=== PATIENT | female | born 1980 | race Caucasian/White ===

== ENCOUNTER → 2021-02-28 | Outpatient (CLI) | payer OTHER ==
--- NOTE | 2021-03-13 14:31 | PFR/MVV ---
[facility] [place] [address] PULMONARY FUNCTION MVV/REPORT Name: [facility] ST[facility]ENS [id number]: [facility]/28/21 Attend Phys: Hunter Stallworth DO Discharge: Date of : 80 Report #: [id number] THIS REPORT FOR: //name// >> SPIROMETRY: (BTPS) Height: 66 in cm Weight: 280 lbs kg Exam Date: 02/28/21 PRE-RX POST-RX PRED BEST %PRED BEST %PRED %CHG FVC LITERS . 3.78 . 3.97 . 105 . 4.19 . 111 . 6 FEV1 LITERS . 2.94 . 3.02 . 102 . 3.32 . 113 . 10 FEV1/FVC % . 77 . 76 . 99 . 79 . 103 . 4 DOD40-58% L/Sec . 3.31 . 2.72 . 82 . 3.22 . 97 . 18 PEF L/SEC . 6.48 . 5.32 . 82 . 5.38 . 83 . -1 FEF50/FIF50 UNITLESS . 4.00 . 3.35 . 84 . 4.48 . 112 . 34 MVV L/Min . 107 . . f 1/Min . . . >> LUNG VOLUMES: (BTPS) PRE-RX POST-RX PRED AVG %PRED AVG %PRED %CHG VC Liters . 3.78 . 3.97 . 105 . . . TLC Liters . 5.46 . . . . . RV Liters . 1.83 . . . . . RV/TLC % . 32 . . . . . FRC PL Liters . 2.01 . 17.76 . 882 . . . FRC N2 Liters . 2.01 . . . . . ERV Liters . 1.25 . . . . . IC Liters . 2.50 . . . . . >> DIFFUSION: DLCO ml/Min/mmHg . 31.6 . 27.9 . 88 . . . DL Raza ml/Min/mmHg . 31.6 . 27.9 . 88 . . . DLCO/VA ml/Min/mmHg . 4.25 . 1.25 . 29 . . . VA Liters . . 22.33 . . . . COMMENTS: COMMENTS: >> RESISTANCE: [facility] [address] [place] [address] PULMONARY FUNCTION MVV/REPORT Name: STEVENSKINA Room #: REG MARY Andersen#: [id number] Admission: 02/28/21 Attend Phys: Hunter Stallworth DO Discharge: Date of : 80 Report #: [id number] PRE-RX PRED AVG %PRED Raw Total cmH20/L/Sec . . 0.77 . Raw Insp cmH20/L/Sec . . 1.41 . Raw Exp cmH20/L/Sec . . 1.43 . Raw cmH20/L/Sec . 1.98 . 0.28 . 14 Gaw L/Sec/cmH20 . 0.483 . 3.521 . 729 sRaw cmH20 Sec . 3.98 . 5.72 . 144 sGaw l/cmH20 Sec . 0.251 . 0.175 . 70 Vtq Liters . . 20.15 . # = OUTSIDE 95% CONFIDENCE INTERVAL CALIBRATION: PRED: 3.00 ACTUAL: EXP 3.01 INSP 3.02 [facility]-10-06 [facility]- [id number] >> INTERPRETATION/IMPRESSION: DATE OF SERVICE: 02/28/2021 PULMONARY FUNCTION STUDIES SPIROMETRY: FEV1 is 3.02 liters (102% predicted), FVC is 3.97 liters (105% predicted), FEV1/FVC ratio is 76%. Post-bronchodilator therapy with an intermediate response. FEV1 increased to 3.32 liters (113% predicted, 10% change). Vital capacity is 3.97 liters (105% predicted). Diffusing capacity is 88%. IMPRESSION: Pulmonary function studies are consistent with normal pulmonary function. There is no obstructive airflow defect. Lung volumes appear normal. Diffusing capacity is normal. There is an intermediate response to bronchodilator therapy. <ELECTRONICALLY SIGNED> By: Mauro Cramer MD 03/13/21 1431 Mauro Cramer MD /nt
== END ==
LOC: PUL 10:51
PROVIDERS: ATTEND Chiropractor
DX: J01.90 Acute sinusitis, unspecified (principal); J45.909 Unspecified asthma, uncomplicated; J30.9 Allergic rhinitis, unspecified; Z20.822 Contact with and (suspected) exposure to COVID-19